=== PATIENT | female | born 1945 | race Caucasian/White ===

== ENCOUNTER 2017-08-04 17:34 | Emergency (ER) | payer MEDICARE, OTHER ==
[~2017-08-04] VITALS: Ht 162.6 cm; Wt 72.7 kg
[2017-08-04 17:35] VITALS: BP 193/88; PULSE 94; RESP 18; TEMP 99; O2SAT 98
[2017-08-04] MEDS ORDERED: LEVO75TA3 PO (19:26)
[2017-08-04] MEDS ORDERED: AMLO5TAB2 PO (19:26)
[2017-08-04] MEDS ORDERED: CLEO300C2 PO (20:00)
[2017-08-04] MEDS ORDERED: CLINDAMYCIN 600 MG/NS PREMIX 50 ML IV ONE (20:00)
--- NOTE | 2017-08-04 20:08 | PD ---
HPI Chief Complaint: Skin Problem Time Seen by Provider: 19:41 Travel History International Travel<30 days: No Contact w/Intl Traveler<30days: No Traveled to known affect area: No History of Present Illness HPI 72-year-old white female presents to emergency department for evaluation of right lower leg wound. She states that she is traveling by boat from [facility] to the [facility]. She is staying on her sailboat. 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 She has not been rechecked since the lesion has been removed. She states that the area on her right lower leg has become black and now has a discharge and followed her. The surrounding leg is red and tender. She denies any fever or chills. No nausea vomiting. She states that she was on a course of Keflex initially but has been out of antibiotics now for some time. Pain is mild. No alleviating factors. No exacerbating factors. PFSH Past Medical History Narrative Medical Hypertension, squamous cell carcinoma, hypothyroidism Cardiovascular Problems: Yes (HTN) Hypertension: Yes Thyroid Disease: Yes Tetanus Vaccination: > 5 Years Influenza Vaccination: Yes Past Surgical History Narrative Surgical Excision of skin cancers Social History Alcohol Use: Yes Tobacco Use: No Substance Use: No Allergies-Medications (Allergen,Severity, Reaction): Coded Allergies: [id number] Reductase Inhibitor (Verified Allergy, Unknown, 08/04/17) Reported Meds & Prescriptions Reported Meds & Active Scripts Active Cleocin (Clindamycin HCl) 300 Mg Cap 300 Mg PO Q6H 10 Days Reported Levothyroxine (Levothyroxine Sodium) 75 Mcg Tab 75 Mcg PO DAILY Amlodipine (Amlodipine Besylate) 5 Mg Tab 5 Mg PO DAILY Review of Systems General / Constitutional: No: Fever Eyes: No: Visual changes HENT: No: Headaches Cardiovascular: No: Chest Pain or Discomfort Respiratory: No: Shortness of Breath Gastrointestinal: No: Abdominal Pain Genitourinary: No: Dysuria Musculoskeletal: Positive: Edema, Pain Skin: Positive Other (right lower leg wound), No Rash Neurologic: No: Weakness Psychiatric: No: Depression Endocrine: No: Polydipsia Hematologic/Lymphatic: No: Easy Bruising Physical Exam Narrative GENERAL: This is a well-nourished, well-developed patient, in no apparent distress. SKIN: Patient has a 4 x 5 cm area of ulceration to the medial right lower leg. This is an area where she had a skin cancer removed. It appears that the wound was excised, undermined and sutured closed. The wound has now become necrotic has developed a wound ulcer. There is a foul odor noted. There is a purulent discharge. The surrounding wound edges are erythematous, tender mildly warm. Patient still has a single subcutaneous suture in the necrotic tissue. There is no Tenderness. There is no lymphangitis. HEAD: Atraumatic. Normocephalic. EYES: PERRL, EOMI, no discharge or injection. No scleral icterus. EARS: Clear NOSE: Nasal turbinates appear normal. THROAT: Mucosa pink and moist. Airway patent. NECK: Trachea midline. supple, moves head freely. LUNGS: Clear to auscultation. CV: Regular in rhythm. ABDOMEN: Soft nontender. EXT: No clubbing cyanosis. Right lower leg wound as described above. Data Data Last Documented VS Vital Signs Date Time Temp Pulse Resp B/P (MAP) Pulse Ox O2 Delivery O2 Flow Rate FiO2 08/04/17 20:59 08/04/17 17:35 99.0 94 18 98 Room Air Orders Orders Complete Blood Count With Diff (08/04/17 19:57) Basic Metabolic Panel (Bmp) (08/04/17 19:57) Wound Culture And Gram Stain (08/04/17 19:57) Iv Access Insert/Monitor (08/04/17 19:57) Clindamycin 600 Mg Premix (Cleocin 600mg (08/04/17 20:00) Ed Discharge Order (08/04/17 21:03) Labs Laboratory Tests Test 08/04/17 19:55 White Blood Count 8.8 TH/MM3 Red Blood Count 4.24 MIL/MM3 Hemoglobin 13.4 GM/DL Hematocrit 39.9 % Mean Corpuscular Volume 94.2 FL Mean Corpuscular Hemoglobin 31.6 PG Mean Corpuscular Hemoglobin Concent 33.5 % Red Cell Distribution Width 14.2 % Platelet Count 316 TH/MM3 Mean Platelet Volume 8.2 FL Neutrophils (%) (Auto) 55.4 % Lymphocytes (%) (Auto) 33.3 % Monocytes (%) (Auto) 8.2 % Eosinophils (%) (Auto) 2.3 % Basophils (%) (Auto) 0.8 % Neutrophils # (Auto) 4.9 TH/MM3 Lymphocytes # (Auto) 2.9 TH/MM3 Monocytes # (Auto) 0.7 TH/MM3 Eosinophils # (Auto) 0.2 TH/MM3 Basophils # (Auto) 0.1 TH/MM3 CBC Comment DIFF FINAL Differential Comment Blood Urea Nitrogen 15 MG/DL Creatinine 0.62 MG/DL Random Glucose 112 MG/DL Calcium Level 8.6 MG/DL Sodium Level 140 MEQ/L Potassium Level 3.4 MEQ/L Chloride Level 105 MEQ/L Carbon Dioxide Level 26.2 MEQ/L Anion Gap 9 MEQ/L Estimat Glomerular Filtration Rate 94 ML/MIN MDM Medical Decision Making Medical Screen Exam Complete: Yes Emergency Medical Condition: Yes Medical Record Reviewed: Yes Interpretation(s) CBC & BMP Diagram 08/04/17 19:55 Calcium Level 8.6 Differential Diagnosis MDM: High Differential diagnoses: Abscess, folliculitis, cellulitis, lymphangitis, abrasion, contact dermatitis, wound infection Narrative Course IV access is obtained. CBC and chemistry sent for analysis. Culture. The wound has been debrided. Patient given clindamycin 600 mg IV. This is right lower leg wound infection, wound ulcer Procedures Procedure Narrative Wound debridement right lower leg: The single suture is removed. The necrotic tissue sharply debrided using iris scissors. The wound is irrigated copiously. A wound culture is obtained of the base of the wound. Neosporin dressing applied. Patient tolerated procedure well. Diagnosis Primary Impression: right lower leg wound infection Additional Impression: right lower leg wound ulcer Patient Instructions: General Instructions Additional Instructions: Rest. Elevation. Daily wound care with soap, water, Neosporin. Clindamycin. Recheck with a clinic in the next 48 hours or return to the ER if any problems develop or worsening. Med/Other Pt SpecificInfo: Prescription(s) given, Wound Care Scripts Clindamycin (Cleocin) 300 Mg Cap 300 MG PO Q6H for Infection for 10 Days, #40 CAP 0 Refills Prov: Judy Bernal DO 08/04/17 Disposition: 01 DISCHARGE HOME Condition: Stable Best Vivar Aug 04, 2017 20:08
[2017-08-04 20:42] LABS: AUTOMATED NEUTROPHIL # 4.9 TH/MM3 (1.8-7.7); BASOPHIL # 0.1 TH/MM3 (0-0.2); BASOPHIL % 0.8 % (0.0-2.0); EOSINOPHIL # 0.2 TH/MM3 (0-0.4); EOSINOPHIL % 2.3 % (0.0-4.0); HEMATOCRIT 39.9 % (35.0-46.0); HEMO FLAGS DIFF FINAL; LYMPH % 33.3 % (9.0-44.0); LYMPHOCYTE # 2.9 TH/MM3 (1.0-4.8); MEAN CELL VOLUME 94.2 FL (80.0-100.0); MEAN CORPUSCULAR HEMOGLOBIN 31.6 PG (27.0-34.0); MEAN CORPUSCULAR HGB CONC 33.5 % (32.0-36.0); MONO % 8.2 % (0.0-8.0); NEUT % 55.4 % (16.0-70.0); PLATELET COUNT 316 TH/MM3 (150-450); RED BLOOD COUNT 4.24 MIL/MM3 (4.00-5.30); RED CELL DISTRIBUTION WIDTH 14.2 % (11.6-17.2); WHITE BLOOD COUNT 8.8 TH/MM3 (4.0-11.0)
[2017-08-04 20:53] LABS: BICARBONATE 26.2 MEQ/L (21.0-32.0); POTASSIUM 3.4 MEQ/L (3.5-5.1)
== END 2017-08-04 21:24 | disposition home or self-care (01) ==
LOC: NEPK 17:34
DX: L97.919 Non-pressure chronic ulcer of unspecified part of right lower leg with unspecified severity (principal); B96.5 Pseudomonas (aeruginosa) (mallei) (pseudomallei) as the cause of diseases classified elsewhere; B95.2 Enterococcus as the cause of diseases classified elsewhere; B96.29 Other Escherichia coli [E. coli] as the cause of diseases classified elsewhere; I10 Essential (primary) hypertension; E03.9 Hypothyroidism, unspecified; Z79.899 Other long term (current) drug therapy
CPT/HCPCS: 80048; 85025; 87070; 87077; 87186; 87205; 96374